=== PATIENT | female | born 1950 | race Caucasian/White ===

== ENCOUNTER 2020-08-13 09:15 | Day surgery (SDC) | payer MEDICARE, BC ==
[~2020-08-13 09:15] MED LIST: ASPIRIN81 MG PO; CALCIUM CITRATE1 TAB PO; CARBAMAZEPIN200 MG PO; ESCITALOPRAM OX10 MG PO; GABAPENTIN100 MG PO; LIPITOR20 M1 PO; METFORMIN500 M2 PO; METOPROL TAR25 MG PO; TIMOLOL 0.25%5 ML OU; UNISOM SLEEP50 MG PO; VALSARTAN80 MG PO; VERAPAMIL HCL240 MG PO; XARELTO10 MG PO
[2020-08-13 11:29] VITALS: BP 100/54
== END 2020-08-13 11:55 | disposition home or self-care (01) ==
LOC: ORM 09:15
PROVIDERS: ATTEND Surgery
PROC: 0J9N0ZZ Drainage of Right Lower Leg Subcutaneous Tissue and Fascia, Open Approach (ICD-10-PCS; principal; 2020-08-13)
DX: S80.11XA Contusion of right lower leg, initial encounter (principal); E11.9 Type 2 diabetes mellitus without complications; I10 Essential (primary) hypertension; I48.91 Unspecified atrial fibrillation; F31.9 Bipolar disorder, unspecified; X58.XXXA Exposure to other specified factors, initial encounter; Z79.01 Long term (current) use of anticoagulants; Z79.84 Long term (current) use of oral hypoglycemic drugs